=== PATIENT | male | born 1995 ===

== ENCOUNTER 2017-07-04 16:28 | Emergency (ER) | payer OTHER ==
[2017-07-04 16:35] VITALS: O2SAT 100
[2017-07-04] MEDS ORDERED: Sodium Chloride 0.9% 1,000 ML IV STA (17:00)
[2017-07-04 17:40] LABS: BASO % 0.5 % (0.0-2.0); EOS % 0.7 % (0.0-4.0); HEMOGLOBIN 15.5 g/dL (12.0-18.0); LYMPH # 1.4 K/uL (1.0-4.3); LYMPH % 27.3 % (20.0-40.0); MEAN CORPUSCULAR HEMOGLOBIN 30.2 pg (27.0-31.0); MEAN PLATELET VOLUME 7.9 fl (7.2-11.7); MONO # 0.5 K/uL (0.0-0.8); MONO % 9.5 % (0.0-10.0); NEUT # 3.3 K/uL (1.8-7.0); NRBC % 0.1 % (0.0-0.0); RBC 5.13 Mil/uL (4.40-5.90); RED CELL DISTRIBUTION WIDTH 13.5 % (11.5-14.5); WHITE BLOOD COUNT 5.2 K/uL (4.8-10.8)
--- NOTE | 2017-07-04 17:43 | ED PDOC ---
HPI: Chest Pain Time Seen by Provider: 07/04/17 17:30 Chief Complaint (Nursing): Chest Pain History Per: Patient (21 Y/O MALE H/O ANXIETY HERE WITH COMPLAINT OF CHEST PAIN. PATIENT DENIES ANY DRUG USE. DENIES ANY PSYCH/CARDIAC HISTORY. ) Past Medical History Reviewed: Historical Data, Nursing Documentation, Vital Signs Vital Signs: Last Vital Signs Temp 97.8 F 07/04/17 16:34 Pulse 139 H 07/04/17 16:34 Resp 20 07/04/17 16:34 BP 172/104 H 07/04/17 16:34 Pulse Ox 100 07/04/17 18:46 - Medical History PMH: Anxiety - Family History Family History: States: No Known Family Hx - Home Medications Home Medications: Ambulatory Orders Medication Instructions Recorded Alprazolam [Xanax] 0.5 mg PO ONCE PRN #1 tab 07/04/17 - Allergies Allergies/Adverse Reactions: Allergies Allergy/AdvReac Type Severity Reaction Status Date / Time No Known Allergies Allergy Verified 07/04/17 16:59 Review of Systems ROS Statement: Except As Marked, All Systems Reviewed And Found Negative Cardiovascular: Positive for: Chest Pain Physical Exam - Reviewed Nursing Documentation Reviewed: Yes Vital Signs Reviewed: Yes - Physical Exam Appears: Positive for: Well, Non-toxic, No Acute Distress (PATIENT IN NO RESP DISTRESS. UNABLE TO SIT STILL) Head Exam: Positive for: ATRAUMATIC, NORMAL INSPECTION, NORMOCEPHALIC Skin: Positive for: Normal Color, Warm, DRY Eye Exam: Positive for: EOMI, Normal appearance, PERRL ENT: Positive for: Normal ENT Inspection Neck: Positive for: Normal, Painless ROM Cardiovascular/Chest: Positive for: Regular Rate, Rhythm Respiratory: Positive for: CNT, Normal Breath Sounds Gastrointestinal/Abdominal: Positive for: Normal Exam, Bowel Sounds, Soft Back: Positive for: Normal Inspection Extremity: Positive for: Normal ROM Neurologic/Psych: Positive for: Alert, Oriented - Laboratory Results Result Diagrams: 07/04/17 17:32 07/04/17 17:32 - ECG O2 Sat by Pulse Oximetry: 100 - Progress ED Course And Treament: NOTED SINUS TACHYARDIA HR 139-144 ON OPHTHALMIC PATHOLOGIST EKG: SINUS TACHYCARDI A NOTED NO ECTOPY NO ACUTE CHANGES. 144 HR CXR: NAD ATIVAN 1 MG IM X 1 ODSE NS 1 LITER UPON RE-EVALUATION, FAMILY WITH PATIENT. PATIENT PLAYING ON PHONE AND MUCH MORE COMFORTABLE. HEART RATE NOTED 100 ON MONITOR. PER FAMILY, PATIENT HAS DEVELOPED ANXIETY OVER 3 YEARS AND HAS BEEN AFRAID TO LEAVE HOUSE. BECAME ANXIOUS TODAY B/C HE LEFT HOME. IS NOT CURRENTLY UNDER CARE OF THERAPIST AND NOT ON ANY MEDICATIONS. D/W CRISIS. APPT FOR July AT 10AM OBTAINED. XANAX 0.5MG ONE TABLET TO BE PRESCRIBED FOR PATIENT TO TAKE PRIOR TO LEAVING HOME ON July. [facility] REVIEWED. NO HISTORY DOCUMENTED FOR PATIENT UNDER THIS NAME AND DATE OF . Disposition - Clinical Impression Clinical Impression: Chest pain, Agoraphobia, Anxiety - Patient ED Disposition Is Patient to be Admitted: No - Disposition Referrals: [facility] [Outside] Disposition: Routine/Home Disposition Time: 18:48 Condition: FAIR Prescriptions: Alprazolam [Xanax] 0.5 mg PO ONCE PRN #1 tab PRN Reason: Anxiety Instructions: Chest Pain, Agoraphobia , Anxiety, Adult (DC) Forms: [employer] (Indonesian)
[2017-07-04 17:55] LABS: URINE AMORPHOUS SEDIMENT RARE /ul (<OCC); URINE BILIRUBIN NEGATIVE (NEGATIVE); URINE BLOOD NEGATIVE (NEGATIVE); URINE CLARITY CLOUDY (Clear); URINE COLOR YELLOW (YELLOW); URINE GLUCOSE (UA) NEG (Normal); URINE LEUKOCYTE ESTERASE NEG Leu/uL (Negative); URINE PROTEIN 30 mg/dL (NEGATIVE); URINE UROBILINOGEN 0.2-1.0 mg/dL (0.2-1.0)
[2017-07-04 17:57] LABS: BARBITURATES, UR NEGATIVE (NEGATIVE); BENZODIAZEPINES, UR NEGATIVE (NEGATIVE); OPIATES, UR NEGATIVE (NEGATIVE); PHENCYCLIDINE, UR NEGATIVE (NEGATIVE)
[2017-07-04 17:58] LABS: ALB/GLOB RATIO 1.4 (1.0-2.1); ALBUMIN 4.9 g/dL (3.5-5.0); ALT/SGPT 38 U/L (21-72); AST/SGOT 24 U/L (17-59); BLOOD UREA NITROGEN 14 mg/dl (9-20); CALCIUM 10.1 mg/dL (8.4-10.2); GFR AFRICAN-AMERICAN > 60; GFR NON-AFRICAN AMERICAN > 60
[2017-07-04 18:49] VITALS: BP 137/90; PULSE 98; RESP 18; TEMP 98.8
--- NOTE | 2017-07-05 08:28 | RAD ---
PROCEDURE: CHEST RADIOGRAPH, 1 VIEW HISTORY: CP/TACHYCARDIA COMPARISON: None available. FINDINGS: LUNGS: No infiltrates are identified bilaterally. PLEURA: No pneumothorax or pleural fluid seen. CARDIOVASCULAR: Normal. OSSEOUS STRUCTURES: No significant abnormalities. VISUALIZED UPPER ABDOMEN: Normal. OTHER FINDINGS: None. IMPRESSION: No acute cardiopulmonary disease appreciated.
== END 2017-07-04 19:09 | disposition home or self-care (01) ==
LOC: H.ER 16:28
DX: R07.89 Other chest pain (principal); F41.9 Anxiety disorder, unspecified; F40.01 Agoraphobia with panic disorder
CPT/HCPCS: 71045; 80053; 80320; 80324; 80345; 80346; 80349; 80353; 80358; 80361; 81003; 83735; 83992; 84443; 84484; 85025; 85378; 96372; 99284; J2060; J7040

== ENCOUNTER 2018-08-02 04:57 | Emergency (ER) | payer OTHER ==
[2018-08-02 05:18] VITALS: BMI 16.1
[2018-08-02 05:21] VITALS: RESP 18; TEMP 97.9
--- NOTE | 2018-08-02 05:40 | ED PDOC ---
HPI: Psych/Substance Abuse Time Seen by Provider: 08/02/18 05:16 Chief Complaint (Nursing): Anxiety Chief Complaint (Provider): Anxiety History Per: Patient History/Exam Limitations: no limitations Onset/Duration Of Symptoms: Persistent Current Symptoms Are (Timing): Still Present Severity: Moderate Associated Symptoms: Anxiety, Other (chest pain) Additional Complaint(s): 22 year old male with a past medical history of severe anxiety and agoraphobia (has not left his home in 1x year) is brought into the ED by EMS for a crisis evaluation. Patient was evaluated at home by a home medical assessment team, and was referred to the ED for a crisis evaluation. Mobile crisis forcibly brought patient to the ED. Patient denies having auditory/ visual hallucinations, suicidal and homicidal ideations. Patient does reports having anxiety and chest pain, likely due to the anxiety. Patient states that he took xanax at home in order to come to the ED. PMD: None provided. Past Medical History Reviewed: Historical Data, Nursing Documentation, Vital Signs Vital Signs: Last Vital Signs Temp 97.9 F 08/02/18 05:17 Pulse 119 H 08/02/18 05:17 Resp 18 08/02/18 05:17 BP 174/83 H 08/02/18 05:17 Pulse Ox 100 08/02/18 05:17 BHAVANA Report Viewed: Yes - Medical History PMH: Anxiety (severe) Other PMH: agoraphobia, patient has not left his home in 1x year - Surgical History Surgical History: No Surg Hx - Family History Family History: States: No Known Family Hx - Social History Current smoker - smoking cessation education provided: No Alcohol: None Drugs: Denies - Home Medications Home Medications: Ambulatory Orders Medication Instructions Recorded Alprazolam [Xanax] 0.5 mg PO ONCE PRN #1 tab 07/04/17 - Allergies Allergies/Adverse Reactions: Allergies Allergy/AdvReac Type Severity Reaction Status Date / Time No Known Allergies Allergy Verified 08/02/18 05:17 Review of Systems ROS Statement: Except As Marked, All Systems Reviewed And Found Negative Cardiovascular: Positive for: Chest Pain (patient thinks due to anxiety) Psych: Positive for: Anxiety (severe). Negative for: Suicidal ideation ((-) homicidal ideation, (-) auditory hallucinations, (-) visual hallucinations) Physical Exam - Reviewed Nursing Documentation Reviewed: Yes Vital Signs Reviewed: Yes - Physical Exam Appears: Positive for: Well, Non-toxic, No Acute Distress Head Exam: Positive for: ATRAUMATIC, NORMOCEPHALIC Skin: Positive for: Normal Color, Warm, Dry Cardiovascular/Chest: Positive for: Regular Rate, Rhythm Respiratory: Positive for: Normal Breath Sounds Neurological/Psych: Positive for: Awake, Alert, Oriented (3x), Mood/Affect (calm, cooperative), Other (repetative involuntary twitching movements) - ECG O2 Sat by Pulse Oximetry: 100 (RA) Pulse Ox Interpretation: Normal Medical Decision Making Medical Decision Makin:16 Initial impression: 22 year old male with agoraphobia, anxiety, chest pain, and possible underlying movement disorder. Initial plan: * crisis evaluation * EKG * flexeril 10 mg PO * motrin tab 600 mg PO * reevaluation 0617 Patient seen and evaluated by crisis team, per Dr. Huffman, patient is stable for discharge home Diagnosis: Anxiety ScribeAttestation: Documented bySandra Casas, acting as a scribe for Lex Mosqueda MD. Provider ScribeAttestation: All medical record entries made by the Scribe were at my direction and personally dictated by me. I have reviewed the chart and agree that the record accurately reflects my personal performance of the history, physical exam, medical decision making, and the department course for this patient. I have also personally directed, reviewed, and agree with the discharge instructions and disposition. Disposition - Clinical Impression Clinical Impression: Anxiety - Disposition Disposition: Routine/Home Disposition Time: 06:18 Condition: STABLE Instructions: Anxiety, Adult (DC) Forms: [employer] ([place]i)
[2018-08-02 06:35] VITALS: BP 117/76; PULSE 73
--- NOTE | 2018-08-02 09:34 | CARD ---
APPROVED REPORT Date of service: 08/02/2018 EKG Measurement Heart [id number] <Conclusion> Sinus tachycardia Otherwise normal ECG
[2018-08-05 03:45] VITALS: O2SAT 100
== END 2018-08-02 06:34 | disposition home or self-care (01) ==
LOC: H.ER 04:57
DX: F41.9 Anxiety disorder, unspecified (principal); F40.00 Agoraphobia, unspecified